=== PATIENT | female | born 1940 | race Caucasian/White ===

== ENCOUNTER 2017-08-16 11:02 | Inpatient (IN) | payer SELFPAY ==
[2017-08-16 12:24] LABS: Absolute Lymphocytes (CBC) 2.5 K/uL (0.7-4.9); Absolute Monocytes 0.6 K/uL (0.1-1.3); Absolute Neutrophil 4.9 K/uL (1.8-8.0); Basophils % 0.7 % (0-1.3); Eosinophils % 1.8 % (0-4.4); Hematocrit 43.4 % (36.0-45.0); Lymphocytes % 30.1 % (15.3-44.8); MCH 30.4 pg (27.0-35.0); MPV 10.5 fL (7.6-11.3); Monocytes % 7.8 % (3.3-12.3); RBC Red Blood Cell Count 4.72 M/uL (3.86-4.86)
[2017-08-16] MEDS ORDERED: TETANUS & DIPHTHERIA TOX,ADULT 0.5 ML VIAL ONE (12:26)
[2017-08-16] MEDS ORDERED: VANCOMYCIN/NS 1 gm 1 GM/250 ML BAG ONE (12:37)
--- NOTE | 2017-08-16 13:17 | EDPHYS ---
Physician Documentation [facility] Name: Amara Vergara Age: 76 yrs Sex: Female : 1940 Arrival Date: 08/16/2017 Time: 11:06 Bed 19 Private MD: ED Physician Morro Parada HPI: 08/16 12:27 This 76 yrs old Female presents to ER via Wheelchair with complaints of snw Foreign Body - L Foot. 12:27 The patient or guardian reports the patient has a suspected foreign body, left foot. snw The reported likely foreign body is sewing needle. Onset: The symptoms/episode began/occurred 4 day(s) ago, and became worse and became persistent. Current symptoms: warmth and erythema to left foot s/p plantar puncture wound. Treatment Prior to Arrival: started Bactrim last pm. The patient has not experienced similar symptoms in the past. The patient has not recently seen a physician. Pt visiting (her Daughter) from [place]. Historical: - Allergies: 11:15 No Known Allergies; la1 - PMHx: 11:15 Hypertension; la1 - Immunization history:: Adult Immunizations up to date. - Social history:: Smoking status: Patient/guardian denies using tobacco. ROS: 12:25 Constitutional: Negative for fever, chills, and weight loss, Eyes: Negative for injury, snw pain, redness, and discharge, ENT: Negative for injury, pain, and discharge, Neck: Negative for injury, pain, and swelling, Cardiovascular: Negative for chest pain, palpitations, and edema, Respiratory: Negative for shortness of breath, cough, wheezing, and pleuritic chest pain, Abdomen/GI: Negative for abdominal pain, nausea, vomiting, diarrhea, and constipation, Back: Negative for injury and pain, : Negative for injury, bleeding, discharge, and swelling, Neuro: Negative for headache, weakness, numbness, tingling, and seizure. 12:25 MS/extremity: Positive for injury or acute deformity, pain, swelling, tenderness, of the left foot. 12:25 Skin: Positive for erythema, of the left foot, x 48 hours. Exam: 12:25 Constitutional: This is a well developed, well nourished patient who is awake, alert, snw and in no acute distress. Head/Face: Normocephalic, atraumatic. Eyes: Pupils equal round and reactive to light, extra-ocular motions intact. Lids and lashes normal. Conjunctiva and sclera are non-icteric and not injected. Cornea within normal limits. Periorbital areas with no swelling, redness, or edema. ENT: Nares patent. No nasal discharge, no septal abnormalities noted. Tympanic membranes are normal and external auditory canals are clear. Oropharynx with no redness, swelling, or masses, exudates, or evidence of obstruction, uvula midline. Mucous membranes moist. Neck: Trachea midline, no thyromegaly or masses palpated, and no cervical lymphadenopathy. Supple, full range of motion without nuchal rigidity, or vertebral point tenderness. No Meningismus. Chest/axilla: Normal chest wall appearance and motion. Nontender with no deformity. No lesions are appreciated. Cardiovascular: Regular rate and rhythm with a normal S1 and S2. No gallops, murmurs, or rubs. Normal PMI, no JVD. No pulse deficits. Respiratory: Lungs have equal breath sounds bilaterally, clear to auscultation and percussion. No rales, rhonchi or wheezes noted. No increased work of breathing, no retractions or nasal flaring. Abdomen/GI: Soft, non-tender, with normal bowel sounds. No distension or tympany. No guarding or rebound. No evidence of tenderness throughout. Back: No spinal tenderness. No costovertebral tenderness. Full range of motion. Neuro: Awake and alert, GCS 15, oriented to person, place, time, and situation. Cranial nerves II-XII grossly intact. Motor strength 5/5 in all extremities. Sensory grossly intact. Cerebellar exam normal. Normal gait. Psych: Awake, alert, with orientation to person, place and time. Behavior, mood, and affect are within normal limits. 12:25 Skin: Appearance: normal except for affected area, Color: erythematous, swelling, that are moderate, injury, puncture(s), that are deep, of the left foot. Vital Signs: 11:14 Pulse 71; Resp 16; Temp 98.6(TE); Pulse Ox 100% on R/A; Weight 70 kg; la1 11:15 BP 169 / 90; la1 12:15 BP 185 / 82; Pulse 58; Resp 16; Pulse Ox 95% on R/A; em 13:00 BP 186 / 88; Pulse 57; Resp 16; Pulse Ox 95% on R/A; Pain 5/10; em 14:43 BP 183 / 82; Pulse 60; Resp 16; Temp 98.1(O); Pulse Ox 96% on R/A; em 14:51 BP 177 / 77; em MDM: 11:17 Patient medically screened. snw 12:56 Data reviewed: vital signs, nurses notes. Data interpreted: Pulse oximetry: on room air snw is 100 %. Test interpretation: by ED physician or midlevel provider: x-ray performed this am with retained fb noted close to metatarsal phalangeal space. Counseling: I had a detailed discussion with the patient and/or guardian regarding: the historical points, exam findings, and any diagnostic results supporting the discharge/admit diagnosis, the presence of at least one elevated blood pressure reading (>120/80) during this emergency department visit, lab results, radiology results, the need for further work-up and treatment in the hospital. Physician consultation: Darien Wne MD was called at 12:57, was contacted at 12:57, regarding admission, to the medical/surgical unit. patient's condition, IVF, antibiotics, NPO post MN. ED course: Katerin (lab[employer]) notified of Dr. Wen request for OR at 0900 tomorrow. 13:45 ED course: Pt's Daughter, Ai, , speaks Kiswahili. 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 Exp: em 09/25/2019. Lot #: [id number]. } Route: IM; Site: left deltoid; 13:48 Follow up: Response: No adverse reaction em 13:48 Drug: NS 0.9% 1000 ml Route: IV; Rate: 75 ml/hr; Site: right antecubital; em 14:58 Follow up: IV Status: Infusion continued upon admission; IV Intake: 75ml em Disposition: 16:08 Co-signature as Attending Physician, Morro Parada MD I agree with the assessment and kdr plan of care. Disposition: 08/16/17 13:17 Hospitalization ordered by Darien Wen for Inpatient Admission. Preliminary diagnosis are Puncture wound with foreign body of foot, Cellulitis of left lower limb. - Bed requested for Telemetry/MedSurg (Inpatient). - Status is Inpatient Admission. iw - Condition is Stable. - Problem is new. - Symptoms are unchanged. UTI on Admission? No Signatures: Dispatcher [employer] EDMS Morro Parada MD MD [facility] Monique Jackson, TRUCK SHOP SUPERVISOR-C TRUCK SHOP SUPERVISOR-Csnw Davide Greco, BRINEYARD SUPERVISOR BRINEYARD SUPERVISOR em Norma Julio, RN Charisma Claudio ms, Lee RN RN la1
--- NOTE | 2017-08-16 13:17 | ER ---
Nurse's Notes [facility] Name: Amara Vergara Age: 76 yrs Sex: Female : 1940 Arrival Date: 08/16/2017 Time: 11:06 Bed 19 Private MD: Diagnosis: Puncture wound with foreign body of foot;Cellulitis of left lower limb Presentation: 08/16 11:13 Presenting complaint: Patient states: I have a sewing needle stuck in my left foot la1 since 08/12. Transition of care: patient was not received from another setting of care. Onset of symptoms was August 16, 2017. Care prior to arrival: None. 11:13 Method Of Arrival: Wheelchair la1 11:13 Acuity: TYESHA 3 la1 Historical: - Allergies: 11:15 No Known Allergies; la1 - PMHx: 11:15 Hypertension; la1 - Immunization history:: Adult Immunizations up to date. - Social history:: Smoking status: Patient/guardian denies using tobacco. Screenin:30 Abuse screen: Denies threats or abuse. Nutritional screening: No deficits noted. em Tuberculosis screening: No symptoms or risk factors identified. Fall Risk None identified. Assessment: 11:30 General: Appears in no apparent distress. uncomfortable, Behavior is calm, cooperative. em General: Reports stepping on sewing needle on 08/12/17, pain and redness noted to the left foot. Pain: Complains of pain in left foot Pain currently is 5 out of 10 on a pain scale. Quality of pain is described as pressure, Pain began 08/12/17. Neuro: Level of Consciousness is awake, alert, Oriented to person, place, time, situation. Cardiovascular: Capillary refill < 3 seconds Patient's skin is warm and dry. Respiratory: Airway is patent Respiratory effort is even, unlabored, Respiratory pattern is regular, symmetrical. GI: Abdomen is round non-distended. : No signs and/or symptoms were reported regarding the genitourinary system. EENT: No signs and/or symptoms were reported regarding the EENT system. Derm: Skin is intact, Skin is pink, warm \T\ dry. Derm: Musculoskeletal: Range of motion: intact in all extremities. 11:45 Reassessment: Patient appears in no apparent distress at this time. i agree with above iw assessment by Davide Greco LVN. 12:30 Reassessment: Patient appears in no apparent distress at this time. Patient and/or em family updated on plan of care and expected duration. Pain level reassessed. Patient is alert, oriented x 3, equal unlabored respirations, skin warm/dry/pink. 13:50 Reassessment: Patient appears in no apparent distress at this time. Patient and/or em family updated on plan of care and expected duration. Pain level reassessed. Patient is alert, oriented x 3, equal unlabored respirations, skin warm/dry/pink. resting comfortably in bed. 14:45 Reassessment: Patient appears in no apparent distress at this time. Patient and/or em family updated on plan of care and expected duration. Pain level reassessed. Patient is alert, oriented x 3, equal unlabored respirations, skin warm/dry/pink. Patient states feeling better. Vital Signs: 11:14 Pulse 71; Resp 16; Temp 98.6(TE); Pulse Ox 100% on R/A; Weight 70 kg; la1 11:15 BP 169 / 90; la1 12:15 BP 185 / 82; Pulse 58; Resp 16; Pulse Ox 95% on R/A; em 13:00 BP 186 / 88; Pulse 57; Resp 16; Pulse Ox 95% on R/A; Pain 5/10; em 14:43 BP 183 / 82; Pulse 60; Resp 16; Temp 98.1(O); Pulse Ox 96% on R/A; em 14:51 BP 177 / 77; em ED Course: 11:06 Patient arrived in ED. as 11:11 Monique Jackson FNP-C [facility]. snw 11:11 Morro Parada MD is Attending Physician. snw 11:14 Triage completed. la1 11:15 Arm band placed on left wrist. la1 11:30 Davide Greco LVN is Primary Nurse. em 11:30 Patient has correct armband on for positive identification. Call light in reach. Side em rails up X2. Adult w/ patient. 11:30 No provider procedures requiring assistance completed. em 12:00 Initial lab(s) drawn, by me, sent to lab. First set of blood cultures drawn Second set mh5 of blood cultures drawn by me. 12:19 Inserted saline lock: 22 gauge in right antecubital area, using aseptic technique. mh5 Blood collected. 13:16 Darien Wen MD is Hospitalizing Provider. snw 14:59 Patient admitted, IV remains in place. 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 Exp: em 09/25/2019. Lot #: [id number]. } Route: IM; Site: left deltoid; 13:48 Follow up: Response: No adverse reaction em 13:48 Drug: NS 0.9% 1000 ml Route: IV; Rate: 75 ml/hr; Site: right antecubital; em 14:58 Follow up: IV Status: Infusion continued upon admission; IV Intake: 75ml em Intake: 14:51 IV: 250ml; Total: 250ml. em 14:58 IV: 75ml; Total: 325ml. em Outcome: 13:17 Decision to Hospitalize by Provider. snw 14:59 Admitted to Med/surg accompanied by tech, via wheelchair, room 407, Report called to em Susanne Cortes RN 14:59 Condition: good 14:59 Instructed on the need for admit, Demonstrated understanding of instructions. 15:16 Patient left the ED. iw Signatures: Monique Jackson, DIRECTOR RETAIL BRAND DEVELOPMENT-C DIRECTOR RETAIL BRAND DEVELOPMENT-Csnw Davide Greco, CHARGE ENTRY CHARGE ENTRY Abril Fregoso as Norma Julio, RN MALIA Abelino Yip RN RN [facility] Charisma Fregoso [facility]
[2017-08-16] MEDS ORDERED: ONDANSETRON 4 MG/2 ML VIAL IV PRN (13:27)
[2017-08-16] MEDS ORDERED: ACETAMINOPHEN 500 MG TAB PO PRN (13:27)
[2017-08-16] MEDS ORDERED: MORPHINE 4 MG/ML SYR IV PRN (13:27)
[2017-08-16] MEDS: NA CHLORIDE 0.9% 1,000 ML IV SCH ×2 (14:00→23:45)
[2017-08-16] MEDS: ENALAPRIL 10 MG TAB PO SCH (16:29)
[2017-08-16] MEDS ORDERED: HYDRALAZINE HCL 20 MG/ML VIAL IV PRN (17:00)
[2017-08-16] MEDS: PIPER/TAZO/NS 3.375gm 3.375 GM/100 ML BAG IVPB SCH (17:23)
[2017-08-16 20:09] VITALS: BMI 26.4
[2017-08-16] MEDS ORDERED: PNEUMOCOCCAL VACCINE 0.5 ML IMVAC ONE (23:00)
[2017-08-17] MEDS: PIPER/TAZO/NS 3.375gm 3.375 GM/100 ML BAG IVPB SCH ×2 (00:40→09:35)
--- NOTE | 2017-08-17 00:40 | HP ---
Date of Admission: 08/16/2017 Brief History Of Present Illness: The patient is a 76-year-old female who stepped on a sewing needle 3-4 days ago prior to her admission and feels that it broke off in her foot. She had been having wo rse tenderness and pain in the area of the left foot along the great toe in the metatarsophalangeal j oint area. She got significantly more tender and now came to the emergency room with the above-state d complaints. Past Medical History: Significant only for hypertension. Past Surgical History: Negative. Allergies: NO KNOWN DRUG ALLERGIES. Medications: Include only lisinopril. Social History: She denies smoking, alcohol, or recreational drug use. Review of Systems: A 10-point review of systems other than HPI, denies. Physical Examination: Vital Signs: At the time of my examination, her BMI is 26.5. Her blood pressure is 197/79, pulse 71 , respiratory rate 16, temperature 97.2. General: She is awake, alert, and oriented. Psychiatric: She is appropriate. Conversive. She is Malagasy speaking. I speak some Slavic, and as such I understand part of what she is saying but a family member is present who is interpreting for me the remainder of the information. Neck: Supple. No JVD. Chest: Normal expansion and excursion. Cardiovascular: Regular rate and rhythm. Pulmonary: Clear to auscultation bilaterally. Abdomen: Soft, nontender, nondistended. Focused examination of the extremity: Left lower extremity and bilateral lower extremities have vari cose veins, left lower extremity, there is a punctate insertion site along the metatarsophalangeal lidya int of the great toe on the left foot and some swelling, tenderness, and induration to the area. The re is no drainage or cellulitis extending beyond approximately 1-2 cm around this insertion site. Th ere is no fluctuance in the area. The skin otherwise is warm and dry. Laboratory Data: She has a white blood cell count of 8.3, hemoglobin is 14.3, hematocrit of 43.4, pl atelet count is 207. Her neutrophils are 159.6. Sodium 138, potassium 4.0, chloride 105, carbon julian xide 26. BUN 16, creatinine 0.95, glucose is 93. Diagnostic Data: She had an x-ray performed of the foot, which I have personally viewed and found th at she has an approximately 18 mm foreign body consistent with a needle in the left plantar soft tiss ues of the forefoot near the puncture insertion site in the metatarsophalangeal joint. Assessment And Plan: This is a 76-year-old female who presents with a foreign body insertion into th e foot as described above. Plan: 1.IV fluids. 2.Antibiotic coverage. 3.Blood pressure control. 4.I have explained the risks, benefits, and alternatives of foreign body removal via surgical approa ch, including but not limited to bleeding, infection, damage to surrounding tissue, need for further operations and procedures. The patient agreed to proceed as indicated. SHOAIB/YONATHAN Voice ID: [id number]
[2017-08-17] MEDS: NA CHLORIDE 0.9% 1,000 ML IV SCH (03:20)
[2017-08-17] MEDS: ENALAPRIL 10 MG TAB PO SCH (09:00)
[2017-08-17] MEDS ORDERED: Ringers Lactate 1,000 ML IV ONE (09:45)
[2017-08-17] MEDS ORDERED: PROPOFOL 200 MG/20 ML VIAL IV ONE (09:49)
[2017-08-17] MEDS ORDERED: MIDAZOLAM HCL 2 MG/2 ML INJ ONE (09:50)
[2017-08-17] MEDS ORDERED: LIDOCAINE 2% MPF 5 ML VIAL ONE (09:50)
[2017-08-17] MEDS ORDERED: FENTANYL CITR 100 MCG/2 ML ONE (09:51)
[2017-08-17] MEDS ORDERED: ONDANSETRON 4 MG/2 ML VIAL ONE (09:51)
[2017-08-17] MEDS: BUPIVACAINE 0.25% PF 10 ML VIAL ONE ×2 (10:01→10:28)
--- NOTE | 2017-08-17 10:25 | P.OP ---
Preoperative diagnosis: LEFT Foot Foreign Body Postoperative diagnosis: LEFT Foot Foreign Body Primary procedure: Removal of LEFT Foot Foreign Body Anesthesia: GETA + Local Estimated blood loss: <2cc Specimen: Needle in LEFT foot Findings: Needle in LEFT foot Complications: None Transferred to: Recovery Room Condition: Good
[2017-08-17 10:41] VITALS: O2SAT 100
[2017-08-17 11:00] VITALS: BP 125/59; TEMP 98.9
[2017-08-17] MEDS ORDERED: VANCOMYCIN/NS 1 gm 1 GM/250 ML BAG IVPB SCH (13:00)
--- NOTE | 2017-08-17 21:09 | OP ---
Date of Procedure: 08/17/2017 Surgeon: Darien Wen MD, Preoperative Diagnosis: Left foot foreign body. Postoperative Diagnosis: Left foot foreign body. Procedure Performed: Removal of the left foot foreign body. Anesthesia: General endotracheal plus local with 0.25% Marcaine with epinephrine. Estimated Blood Loss: Less than 2 cc. Specimen: Needle of the left foot. Findings: There was a sewing needle in the left foot, transversely placed. Complications: None. Disposition: Transferred to recovery room in good condition. Procedure In Detail: After informed consent was obtained, the patient was brought to the operating r oom, prepped and draped in the usual sterile fashion. After adequate anesthesia achieved, I used the ultrasound probe to better identify the tract of the needle. I made an incision over this area. A linear incision parallel to the orientation of the toes and dissected down until the needle was encou ntered. I grasped and removed the needle with hemostat clamps and sent it for identification. A sew ing needle was found in this area. There were no purulent collections in the area. I then copiously irrigated the area and closed with a 2-0 nylon in an interrupted fashion. Sterile dressing was plac ed over the top. The patient tolerated the procedure well without evidence of complication and transferred to the PACU in good condition. All counts were correct at the end of the case. SHOAIB/YONATHAN Voice ID: [id number] Report ID: [id number]
== END 2017-08-17 12:26 | disposition home or self-care (01) | DRG 914 ==
LOC: ER 11:02 → ERHOLD 13:17 → 4TH 14:59
PROVIDERS: ADMIT Surgery; ATTEND Surgery
PROC: 0JCR0ZZ Extirpation of Matter from Left Foot Subcutaneous Tissue and Fascia, Open Approach (ICD-10-PCS; principal; 2017-08-17 09:30)
DX: S91.342A Puncture wound with foreign body, left foot, initial encounter (principal); I10 Essential (primary) hypertension; X58.XXXA Exposure to other specified factors, initial encounter; Y92.9 Unspecified place or not applicable
CPT/HCPCS: 36415; 80048; 85025; 87040; 88300; 90714; 96365; 96366; 99285; J0360; J2250; J2405; J2543; J3010; J3370; J7030